=== PATIENT | male | born 1965 | race Caucasian/White ===

== ENCOUNTER 2019-02-21 12:54 | Emergency (ER) | payer OTHER, MEDICAID ==
[~2019-02-21] VITALS: Wt 81.6 kg
--- NOTE | ~2019-02-21 | EKG ---
[place], [place] ELECTROCARDIOGRAM REPORT NAME: MONSERRAT SULLIVAN UNIT #: [id number] ROOM: DOCTOR: ESTEFANY DRAFT REPORT BIRTHDATE: [birth year] [facility] Test Date: 2019-02-21 Test Time: 16:09:25 Pat Name: MONSERRAT SULLIVAN Department: Room: Gender: [employer] Chief: : [id number] Requested By: ELSIHA DIALLO Order Number: [id number] Reading MD: Measurements Intervals [place] Rate: 82 P: 60 AR: 147 QRS: 67 QRSD: 121 T: -78 QT: 402 QTc: 470 Interpretive Statements Sinus rhythm Left bundle branch block Compared to ECG 01/24/2019 04:46:04 Left bundle-branch block now present Intraventricular conduction delay no longer present Myocardial infarct finding no longer present CM:EKGRPT:ELECTROCARDIOGRAM REPORT [id number] ELISHA ALLISON DRAFT REPORT ELISHA DIALLO MD
--- NOTE | ~2019-02-21 | EKG ---
[place], [place] ELECTROCARDIOGRAM REPORT NAME: MONSERRAT SULLIVAN UNIT #: [id number] ROOM: DOCTOR: ESTEFANY DRAFT REPORT BIRTHDATE: [birth year] [facility] Test Date: 2019-02-21 Test Time: 13:44:45 Pat Name: MONSERRAT SULLIVAN Department: Room: Gender: Psychotherapist: : 1965 Requested By: ELISHA DIALLO Order Number: [id number] Reading MD: Measurements Intervals [place] Rate: 76 P: 48 ND: 158 QRS: 85 QRSD: 120 T: -43 QT: 389 QTc: 438 Interpretive Statements Sinus rhythm Nonspecific intraventricular conduction delay Anterior infarct, possibly acute Lateral leads are also involved Compared to ECG 01/24/2019 04:46:04 No significant changes CM:EKGRPT:ELECTROCARDIOGRAM REPORT [id number] ELISHA ALLISON DRAFT REPORT ELISHA DIALLO MD
[~2019-02-21 12:54] MED LIST: ALEVE220 M1 PO; CETIRIZINE10 MG PO; CIPRO500 MG PO; CYCLOBENZAPRINE5 M3 PO; LATU40TA PO; LIPITOR20 MG PO; MELATONIN3 MG PO; MELATONIN5 M1 SL; METOPROLOL SUCC25 M2 PO; NAPROXEN250 MG PO; OSTEO BI-FLEX1 EAC1 PO; SIMVASTATIN40 MG PO; SYNTHROID,LEV112 MCG PO; Synthroid,Lev125 MCG PO; VITAMIN D400 I1 PO; ZYLOPRIM100 MG PO
[2019-02-21 13:26] LABS: BASO # 0.1 10*3/uL (0.0-0.1); BASO % 1.3 % (0.0-1.0); EOS # 0.1 10*3/uL (0.0-0.4); EOS % 1.9 % (1.0-4.0); HEMATOCRIT 42.3 % (42.0-52.0); HEMOGLOBIN 14.1 g/dl (14.0-18.0); MEAN CELL VOLUME 96.6 fl (80.0-94.0); MEAN CORPUSCULAR HGB 32.2 pg (27.0-31.0); MEAN CORPUSCULAR HGB CONC 33.3 g/dl (33.0-37.0); MEAN PLATELET VOLUME 9.8 fl (9.6-12.3); MONO # 0.7 10*3/uL (0.1-1.0); NEUT # 4.4 10*3/uL (2.3-7.9); NEUT % 69.5 % (47.0-73.0); PLATELET COUNT AUTOMATED 271 10*3/uL (130-400); RED BLOOD COUNT 4.38 10*6/uL (4.50-5.90); RED CELL DISTRI WIDTH 13.4 % (0-14.5); WHITE BLOOD COUNT 6.4 10*3/uL (4.8-10.8)
[2019-02-21 13:38] LABS: ACT PARTIAL THROMBO TIME 28.8 SECONDS (20.0-32.1); INTERNATIONAL NORM RATIO 0.9 (2.0-3.5)
[2019-02-21 13:50] LABS: ALBUMIN 3.7 gm/dl (3.1-4.5); ALKALINE PHOSPHATASE 120 U/L (45-117); BUN 14 mg/dl (7-24); CHLORIDE 96 mmol/L (98-107); CREATININE 1.21 mg/dL (0.70-1.30); POTASSIUM 4.2 mmol/L (3.5-5.1); SGOT/AST 31 IU/L (3-35); SGPT/ALT 33 U/L (12-78); SODIUM 131 mmol/L (136-145); TOTAL PROTEIN 7.7 gm/dL (6.4-8.2)
[2019-02-21 13:53] LABS: TROPONIN I < 0.015 ng/ml (<0.045)
== END 2019-02-21 17:14 | disposition home or self-care (01) ==
LOC: ED 12:54
PROVIDERS: Emergency Medicine
DX: I44.7 Left bundle-branch block, unspecified (principal); E78.5 Hyperlipidemia, unspecified; R79.1 Abnormal coagulation profile; M10.9 Gout, unspecified; E03.9 Hypothyroidism, unspecified; Z13.89 Encounter for screening for other disorder; Z88.8 Allergy status to other drugs, medicaments and biological substances; Z79.899 Other long term (current) drug therapy